=== PATIENT | male | born 1940 | race Caucasian/White ===

== ENCOUNTER → 2016-06-19 | Outpatient (REF) | payer OTHER ==
[~2016-06-19] MED LIST: ASPI1TAB PO; ATEN100T PO; CIPR500T89 PO; DIGO0.25 PO; FLOM5CAP PO; GLIM2TAB PO; IBUP800T23 PO; ISOS60TA2 PO; LISI-538 PO; METF500T PO; METF850T PO; NEXI40CA PO; PROS5TAB PO; SIMV40TA2 PO; TAMS0.4C2 PO
[2016-06-19 09:13] LABS: ALBUMIN 3.2 GM/DL (3.2-5.2); ALBUMIN/GLOBULIN RATIO 0.94 (1.00-1.93); ALKALINE PHOSPHATASE 187 U/L (45-117); ALT/SGPT 64 U/L (12-78); ANION GAP 12 MEQ/L (8-16); AST/SGOT 50 U/L (15-37); BILIRUBIN,TOTAL 0.3 MG/DL (0.2-1.0); BLOOD UREA NITROGEN 11 MG/DL (7-18); CALCIUM LEVEL 9.7 MG/DL (8.8-10.2); CARBON DIOXIDE LEVEL 23 MEQ/L (21-32); CHLORIDE LEVEL 103 MEQ/L (98-107); CREATININE FOR GFR 0.83 MG/DL (0.70-1.30); GLOMERULAR FILTRATION RATE > 60.0 (>42); GLUCOSE, FASTING 187 MG/DL (83-110); POTASSIUM SERUM 4.6 MEQ/L (3.5-5.1); SODIUM LEVEL 138 MEQ/L (136-145); TOTAL PROTEIN 6.6 GM/DL (6.4-8.2)
== END ==
LOC: M LAB REF 08:52
PROVIDERS: ATTEND Internal Medicine Medical Oncology
DX: C45.0 Mesothelioma of pleura (principal)

== ENCOUNTER 2016-08-18 10:22 | Emergency (ER) | payer MEDICARE, OTHER ==
[2016-08-18] MEDS ORDERED: OXYC1SOL PO (10:51)
[2016-08-18] MEDS ORDERED: FOLI800C PO (10:51)
[2016-08-18] MEDS ORDERED: [UNRECOGNIZED DRUG - CODE] SC (10:51)
[2016-08-18] MEDS ORDERED: MAGN1TAB25 PO (10:51)
[2016-08-18] MEDS ORDERED: OMEP40CA2 PO (10:51)
[2016-08-18] MEDS ORDERED: METF500T PO (10:51)
[2016-08-18] MEDS ORDERED: MORPHINE 4 MG/ML 1ML SYRINGE IV ONE (12:30)
[2016-08-18] MEDS ORDERED: ONDANSETRON 4MG/2ML VIAL (J2405) IV ONE (12:30)
[2016-08-18 13:13] LABS: ANION GAP 9 MEQ/L (8-16); BLOOD UREA NITROGEN 11 MG/DL (7-18); CALCIUM LEVEL 9.8 MG/DL (8.8-10.2); CARBON DIOXIDE LEVEL 26 MEQ/L (21-32); CHLORIDE LEVEL 99 MEQ/L (98-107); CREATININE FOR GFR 0.69 MG/DL (0.70-1.30); GLOMERULAR FILTRATION RATE > 60.0 (>42); GLUCOSE, FASTING 94 MG/DL (83-110); SODIUM LEVEL 134 MEQ/L (136-145)
[2016-08-18 13:16] LABS: POTASSIUM SERUM 5.2 MEQ/L (3.5-5.1)
[2016-08-18 13:34] LABS: INR 0.99
[2016-08-18 13:35] LABS: BASO % 0.4 % (0.0-1.0); EOS # 0.1 K/mm3 (0.0-0.50); EOS % 0.8 % (0.0-3.0); LARGE UNSTAINED CELL # 0.1 K/mm3 (0.0-0.4); LARGE UNSTAINED CELL % 1.4 % (0.0-4.0); LYMPH # 1.3 K/mm3 (1.5-4.5); LYMPH % 15.6 % (24.0-44.0); MEAN CORPUSCULAR HEMOGLOBIN 28.9 pg (27.0-33.0); MEAN CORPUSCULAR HGB CONC 32.1 g/dl (32.0-36.5); MEAN CORPUSCULAR VOLUME 90.1 fl (80.0-96.0); MONO # 0.4 K/mm3 (0.0-0.8); MONO % 4.7 % (0.0-5.0); NEUTROPHILS # 6.3 K/mm3 (1.8-7.7); NEUTROPHILS % 77.1 % (36.0-66.0); PLATELET COUNT, AUTOMATED 229 k/mm3 (150-450); RED CELL DISTRIBUTION WIDTH 13.4 % (11.5-14.5); WHITE BLOOD COUNT 8.1 K/mm3 (4.0-10.0)
--- NOTE | 2016-08-18 14:03 | REP ---
PELVIS, LEFT HIP: THREE VIEWS. HISTORY: Pain. Postop. Recent hip replacement. Injury in a fall. FINDINGS: AP view of the pelvis shows some diffuse osteopenia. Visualized bowel gas pattern is normal. The left hip prosthesis is installed. There are degenerative disc changes in the lumbar spine. No sacral or pelvic fracture is appreciated. AP and frog-leg views of the left hip demonstrate lateral skin anh and some lateral soft tissue swelling. Left hip arthroplasty components are well aligned with respect to each other. No fracture seen. IMPRESSION: Status post left hip arthroplasty. No fracture seen. Signed by Fernando Fernandez MD 08/18/2016 02:33 P
[2016-08-18] MEDS ORDERED: PERC5TAB6 PO (15:09)
[2016-08-18 15:42] VITALS: BP 100/62
== END 2016-08-18 15:48 | disposition home or self-care (01) ==
LOC: EDBD 10:22 → M ED 12:08
DX: M25.552 Pain in left hip (principal); Z88.0 Allergy status to penicillin; Z79.82 Long term (current) use of aspirin; Z79.899 Other long term (current) drug therapy; Z79.84 Long term (current) use of oral hypoglycemic drugs; Z87.891 Personal history of nicotine dependence; E78.00 Pure hypercholesterolemia, unspecified; I10 Essential (primary) hypertension; I48.91 Unspecified atrial fibrillation; J43.9 Emphysema, unspecified; Z85.118 Personal history of other malignant neoplasm of bronchus and lung; K21.9 Gastro-esophageal reflux disease without esophagitis; Z87.442 Personal history of urinary calculi; Z85.51 Personal history of malignant neoplasm of bladder; E11.9 Type 2 diabetes mellitus without complications; M19.90 Unspecified osteoarthritis, unspecified site
CPT/HCPCS: 36415; 73502; 80048; 85025; 85610; 96374; 96375; 99282; J2405

== ENCOUNTER → 2016-09-03 | Day surgery (SDC) | payer OTHER ==
[~2016-09-03] VITALS: Ht 172.7 cm; Wt 71.2 kg
[~2016-09-03] MED LIST changes: +BUPIVACAINE HCL 0.25% 30 ML VIAL As Ordered ONE; +BUPIVACAINE LIPOSOME/PF 1.3% 20 ML VIAL (13.3MG/ML)(EXPAREL) As Ordered ONE; +FOLI800C PO; +LIDOCAINE 2% INJ 100 MG/5 ML SDV (FOR ANES.) As Ordered ONE; +LIDOCAINE W/EPINEPHRINE 1% 20ML VIAL As Ordered ONE; +LR 1,000 ML IV SCH; +MAGN1TAB25 PO; +MIDAZOLAM INJ 2 MG/2 ML VIAL (J2250) As Ordered ONE; +OMEP40CA2 PO; +ONDANSETRON 4MG/2ML VIAL (J2405) As Ordered ONE; +ONDANSETRON 4MG/2ML VIAL (J2405) IV PRN; +OXYC1SOL PO; +PERC5TAB6 PO; +PERCOCET 5MG/325MG TAB PO PRN; +PROPOFOL 200 MG/20 ML VIAL As Ordered ONE; +[UNRECOGNIZED DRUG - CODE] SC; +ceFAZolin 1GM INJ (J0690) As Ordered ONE; +fentaNYL 100 MCG/2 ML INJECTION (J3010) As Ordered ONE; +fentaNYL 100 MCG/2 ML INJECTION (J3010) IV PRN
[2016-09-03 11:45] VITALS: BP 110/65
--- NOTE | 2016-09-03 17:10 | RO ---
DATE OF PROCEDURE: 09/03/2016 PREPROCEDURE DIAGNOSIS: Subcutaneous mass. POSTPROCEDURE DIAGNOSIS: Left chest wall mass. PROCEDURE: Excision of left chest wall mass. SURGEON: Robin Burt MD [employer] DRIVER: ANESTHESIA: FINDINGS: The subcutaneous nodule was easily excised however it was clear from palpation that the main mass was much more extensive. In fact, I eventually found that it went down to the ribs and was coming from the intercostal space. Probably represent mesothelioma. Therefore the procedure was a lot more extensive than I thought it was going to be. None the less it could be accomplished under local anesthesia with MAC sedation. The masses were sent for pathological examination for permanent dissections. DESCRIPTION OF PROCEDURE: Under satisfactory MAC anesthesia area was prepped and draped in the usual sterile. Patient had previously been placed in the right lateral decubitus position. He positioned himself as to not injure his hip. Patient was prepped and draped in the usual sterile fashion and the proposed incision was marked. The proposed incision site was infiltrated with 0.25% Marcaine. This was later followed with Exparel. Incision was made and the right subcutaneous nodule was removed in entirety through an elliptical incision. Palpation however though the soft-tissues indicated that he had a much more extensive mass. This was then excised by use of electrocautery and sharp and blunt dissection where I could peel the mass eventually off the rib. It was seen to be coming through the intercostal space and it was cut off at that point. The intercostal artery was entered and was cauterized. The remainder of the mass was removed by both sharp and blunt dissection and with use of electrocautery. This of course required an excision of a portion of the latissimus dorsi muscle. The excision of course was extended to accommodate the true nature of the chest wall mass. After achieving adequate hemostasis the latissimus dorsi was closed with running #0 Vicryl suture. Subcutaneous tissue closed with running #3-0 Vicryl suture and the skin closed with running #4-0 Monocryl subcuticular sutures. The patient tolerated the procedure well and left the operating room in satisfactory condition to the recovery room.
== END | disposition home or self-care (01) ==
LOC: M SDC 07:35
PROVIDERS: ATTEND Thoracic Surgery (Cardiothoracic Vascular Surgery)
DX: C45.7 Mesothelioma of other sites (principal); I10 Essential (primary) hypertension; I20.9 Angina pectoris, unspecified; E78.00 Pure hypercholesterolemia, unspecified; E10.9 Type 1 diabetes mellitus without complications; K21.9 Gastro-esophageal reflux disease without esophagitis; R29.898 Other symptoms and signs involving the musculoskeletal system; R06.83 Snoring; Z88.0 Allergy status to penicillin; Z79.899 Other long term (current) drug therapy; Z79.82 Long term (current) use of aspirin; Z85.51 Personal history of malignant neoplasm of bladder; Z96.642 Presence of left artificial hip joint; Z92.21 Personal history of antineoplastic chemotherapy
CPT/HCPCS: 21933; 88305; 88341; 88342; J0690; J2250; J2405; J3010

== ENCOUNTER → 2016-10-08 | Outpatient (CLI) | payer OTHER ==
[~2016-10-08] MED LIST changes: -BUPIVACAINE HCL 0.25% 30 ML VIAL As Ordered ONE; -BUPIVACAINE LIPOSOME/PF 1.3% 20 ML VIAL (13.3MG/ML)(EXPAREL) As Ordered ONE; +GASTROGRAFIN SOLUTION 30ML (Q9963) As Ordered ONE; +ISOVUE-370 76% 100ML VIAL (Q9967) As Ordered ONE; -LIDOCAINE 2% INJ 100 MG/5 ML SDV (FOR ANES.) As Ordered ONE; -LIDOCAINE W/EPINEPHRINE 1% 20ML VIAL As Ordered ONE; -LR 1,000 ML IV SCH; -MIDAZOLAM INJ 2 MG/2 ML VIAL (J2250) As Ordered ONE; -ONDANSETRON 4MG/2ML VIAL (J2405) As Ordered ONE; -ONDANSETRON 4MG/2ML VIAL (J2405) IV PRN; -PERCOCET 5MG/325MG TAB PO PRN; -PROPOFOL 200 MG/20 ML VIAL As Ordered ONE; -ceFAZolin 1GM INJ (J0690) As Ordered ONE; -fentaNYL 100 MCG/2 ML INJECTION (J3010) As Ordered ONE; -fentaNYL 100 MCG/2 ML INJECTION (J3010) IV PRN
--- NOTE | 2016-10-09 04:07 | REP ---
Clinical: Mesothelioma. Technique: Axial contrast enhanced images from the thoracic inlet to the upper abdomen using 100 ml Isovue 370 intravenous contrast material with coronal and sagittal re-formations. Comparison: Outside examination dated 07/30/2016. Findings: Irregular circumferential pleural thickening to the left hemithorax along with irregular nodular thickening to the left major fissure is appreciated and may be slightly more pronounced than prior examination. Moderate bilateral subpleural fibrosis, interstitial changes and bronchiectasis noted along with scattered pleural calcifications. Subcentimeter mediastinal and hilar lymph nodes are nonspecific. Atherosclerotic changes to the thoracic aorta and coronary arteries noted without aortic aneurysm/dissection, cardiomegaly or pericardial effusion. Musculoskeletal structures demonstrate age-related degenerative changes. Impression: 1. Evidence for asbestosis including diffuse moderate fibrosis, interstitial disease, bronchiectasis, and scattered partially calcified pleural plaques. 2. The irregular circumferential pleural thickening and thickening / nodularity involving the left lung and left major fissure which may be very minimally more prominent than prior examination. Signed by Jesus Ryan MD 10/09/2016 03:59 A
--- NOTE | 2016-10-09 04:15 | REP ---
Clinical: Mesothelioma. Technique: Axial precontrast, contrast enhanced, and delayed images of the abdomen using oral and 100 ml Isovue 370 intravenous contrast material with coronal and sagittal re-formations. Comparison: 06/13/2016. Findings: Lung bases demonstrate irregular circumferential pleural thickening to the left hemithorax. Visualized heart and pericardium normal. Liver, spleen, pancreas, bilateral adrenal glands and kidneys are normal / stable. Incidental note is made of bilateral 2 cm renal cysts unchanged. Cholelithiasis. Visualized enteric system is without obstruction or acute inflammatory process. Visualized abdominal aorta and branch vessels demonstrate atherosclerotic changes without aneurysm or dissection. No obvious intraperitoneal or retroperitoneal adenopathy. No mass lesion. Musculoskeletal structures demonstrate age-related degenerative changes. Impression: 1. Irregular pleural thickening to the visualized left hemithorax consistent with history of mesothelioma. 2. Simple, stable bilateral renal cysts. 3. Cholelithiasis. 4. No obvious abdominal metastatic disease, mass lesion, adenopathy or ascites. Signed by Jesus Ryan MD 10/09/2016 04:07 A
== END ==
LOC: M RAD 12:04
PROVIDERS: ATTEND Internal Medicine Medical Oncology
DX: C45.9 Mesothelioma, unspecified (principal)

== ENCOUNTER → 2016-12-29 | Outpatient (REF) | payer OTHER ==
[~2016-12-29] MED LIST changes: +CIPR-249 PO; -CIPR500T89 PO; -GASTROGRAFIN SOLUTION 30ML (Q9963) As Ordered ONE; +IBUP1TAB7 PO; -IBUP800T23 PO; -ISOVUE-370 76% 100ML VIAL (Q9967) As Ordered ONE; -METF500T PO; +METF500T13 PO; -METF850T PO; +METF850T4 PO; -OXYC1SOL PO; +OXYC1SOL3 PO; +PERC5TAB12 PO; -PERC5TAB6 PO
== END ==
LOC: M LAB REF 18:31
PROVIDERS: ATTEND Internal Medicine Medical Oncology
DX: C45.9 Mesothelioma, unspecified (principal)

== ENCOUNTER → 2017-01-08 | Outpatient (REF) | payer OTHER | LOC: M LAB REF 12:45 | PROVIDERS: ATTEND Internal Medicine Medical Oncology | DX: C45.9 Mesothelioma, unspecified (principal) ==

== ENCOUNTER → 2017-01-15 | Outpatient (CLI) | payer MEDICARE, OTHER ==
[~2017-01-15] MED LIST changes: +GASTROGRAFIN SOLUTION 30ML (Q9963) As Ordered ONE; +ISOVUE-370 76% 100ML VIAL (Q9967) As Ordered ONE
--- NOTE | 2017-01-16 08:11 | REP ---
Clinical: Mesothelioma for restaging. Technique: Axial contrast enhanced images from the thoracic inlet to the upper abdomen using 100 ml Isovue 370 intravenous contrast material with coronal and sagittal re-formations. Comparison: 10/08/2016. Findings: Thickened irregular somewhat nodular pleural thickening involving the left hemithorax and left major fissure appears relatively similar to prior examination. There is a area of irregular consolidation with 1.4 cm mass involving the posterior left lower lobe (image 58) which is considerably increased from prior examination. Diffuse chronic bilateral interstitial disease with subpleural fibrosis, scarring, and bronchiectasis is similar to prior examination. Mediastinal and hilar lymph nodes measure up to approximately 12 mm short axis diameter and are unchanged. No new pleural effusion with no pneumothorax. Atherosclerotic changes to the thoracic aorta and coronary arteries noted mild cardiomegaly suggested. No pericardial effusion. Limited upper abdomen demonstrates chronic appearing bilateral perinephric stranding and cholelithiasis without CT evidence for acute cholecystitis. Surrounding musculoskeletal structures demonstrate age-related changes and osteopenia. Impression: 1. Diffuse bilateral chronic changes. Irregular and nodular pleural thickening surrounding the entire left hemithorax and involving the left major fissure is similar to prior examination and consistent with mesothelioma. 2. There is a new/increased lesion in the left lower lobe measuring roughly 1.4 cm diameter to the soft tissue/nodular component suggesting active disease. Signed by Jesus Ryan MD 01/16/2017 03:42 A
== END ==
LOC: M RAD 09:13
PROVIDERS: ATTEND Internal Medicine Medical Oncology
DX: C45.9 Mesothelioma, unspecified (principal)
CPT/HCPCS: 71260; Q9967

== ENCOUNTER → 2017-01-19 | Outpatient (REF) | payer OTHER ==
[~2017-01-19] MED LIST changes: -GASTROGRAFIN SOLUTION 30ML (Q9963) As Ordered ONE; -ISOVUE-370 76% 100ML VIAL (Q9967) As Ordered ONE
== END ==
LOC: M LAB REF 12:41
PROVIDERS: ATTEND Internal Medicine Medical Oncology
DX: C45.9 Mesothelioma, unspecified (principal)

== ENCOUNTER → 2017-01-27 | Outpatient (CLI) | payer OTHER ==
[~2017-01-27] MED LIST changes: +ISOVUE-370 76% 100ML VIAL (Q9967) As Ordered ONE
--- NOTE | 2017-01-27 18:39 | REP ---
Soft tissue CT study of the neck with IV contrast: History: Left neck mass. History of mesothelioma. CT contrast dose: 75 mL as of intravenous Isovue [address] findings: Digital mfts image demonstrates an Ereekj-X-Shel catheter entering the right chest. Contrast enhanced CT images show suspicious lymphadenopathy in the left anterior jugular chain. There are two abnormal lymph nodes. The largest of these has a poorly enhancing necrotic appearing center with dimensions of 2.9 x 2.2 x 2.4 cm. This is posterolateral to the submandibular gland on the left side and anterior to the carotid bifurcation. Just above this, posterior to the angle of the mandible, there is a homogeneously enhancing enlarged left cervical node measuring 1.5 x 1.0 x 1.6 cm. There is some inflammatory thickening of the platysma and some adjacent edema associated with these to enlarged lymph nodes. No other evidence of cervical adenopathy is seen. Thyroid lobes are normal and symmetric. Glottic and subglottic airway are unremarkable. There are degenerative disc changes and facet changes in the cervical spine. No bony destructive lesion is seen. Some vascular calcification is noted. The visualized intracranial structures are unremarkable. Impression: Necrotic adenopathy suspicious for neoplasm or possibly infection in the left anterior internal jugular chain. The largest lymph node measures 2.9 cm in greatest diameter. Signed by Fernando Fernandez MD 01/28/2017 07:59 A
== END ==
LOC: M RAD 15:58
PROVIDERS: ATTEND Internal Medicine Medical Oncology
DX: C45.9 Mesothelioma, unspecified (principal); R22.1 Localized swelling, mass and lump, neck
CPT/HCPCS: 70491; Q9967

== ENCOUNTER → 2017-02-03 | Outpatient (REF) | payer OTHER ==
[~2017-02-03] MED LIST changes: -ISOVUE-370 76% 100ML VIAL (Q9967) As Ordered ONE
== END ==
LOC: M LAB REF 17:41
PROVIDERS: ATTEND Otolaryngology
DX: R22.1 Localized swelling, mass and lump, neck (principal)

== ENCOUNTER → 2017-02-03 | Outpatient (REF) | payer OTHER | LOC: M LAB REF 15:16 | PROVIDERS: ATTEND Otolaryngology | DX: R22.1 Localized swelling, mass and lump, neck (principal) ==

== ENCOUNTER → 2017-02-19 | Outpatient (REF) | payer OTHER ==
[2017-02-19 11:12] LABS: IONIZED CALCIUM 5.5 MG/DL (4.5-5.3)
[2017-02-19 13:10] LABS: MAGNESIUM LEVEL 1.7 MG/DL (1.8-2.4)
== END ==
LOC: M LAB REF 10:33
PROVIDERS: ATTEND Internal Medicine Medical Oncology
DX: C45.0 Mesothelioma of pleura (principal)

== ENCOUNTER → 2017-03-04 | Outpatient (CLI) | payer OTHER ==
[~2017-03-04] MED LIST changes: +LIDOCAINE 1% MDV 20ML VIAL As Ordered ONE
--- NOTE | 2017-03-04 17:25 | REP ---
ULTRASOUND GUIDED LEFT SUBMANDIBULAR MASS BIOPSY: The procedure was performed under the direct supervision of Dr. Polo. The patient has a history of necrotic adenopathy suspicious for neoplasm or possibly infection in the left anterior internal jugular chain. The largest measuring 2.9 cm in greatest diameter seen on a previous CAT scan date 01/27/2017. The risks and benefits of the procedure were explained to the patient and informed consent was obtained. The left submandibular mass was localized using ultrasound guidance. The skin was prepped and draped in a sterile fashion. 1% Xylocaine was used as a local anesthetic. Using ultrasound guidance 8 fine-needle aspirations were obtained using 25-gauge needles. All samples were sent to the lab for analysis. The patient tolerated the procedure well and there were no immediate complications. After the appropriate amount of monitored convalescence the patient was discharged from the department. Reviewed by CISCO Hager 03/06/2017 04:02 PEdited and Signed by Kulwinder Polo MD 03/06/2017 07:21 P
== END ==
LOC: M RADPRO 09:04
PROVIDERS: ATTEND Otolaryngology
DX: D11.0 Benign neoplasm of parotid gland (principal); Z88.0 Allergy status to penicillin; Z85.51 Personal history of malignant neoplasm of bladder; Z92.21 Personal history of antineoplastic chemotherapy; Z79.82 Long term (current) use of aspirin; Z79.84 Long term (current) use of oral hypoglycemic drugs; Z79.899 Other long term (current) drug therapy; Z87.891 Personal history of nicotine dependence

== ENCOUNTER → 2017-03-11 | Outpatient (REF) | payer OTHER ==
[~2017-03-11] MED LIST changes: -LIDOCAINE 1% MDV 20ML VIAL As Ordered ONE
== END ==
LOC: M LAB REF 12:40
PROVIDERS: ATTEND Internal Medicine Medical Oncology
DX: C45.9 Mesothelioma, unspecified (principal); Z51.11 Encounter for antineoplastic chemotherapy; E83.42 Hypomagnesemia